=== PATIENT | female | born 1985 | race African-American/Black ===

== ENCOUNTER 2023-01-24 15:04 | Observation (INO) | payer OTHER ==
[2023-01-24 15:17] VITALS: BMI 18.8
[2023-01-24] MEDS ORDERED: KETOROLAC TROMETHAMINE 30 MG/1 ML VIAL IVPUSH ONE (16:02)
[2023-01-24] MEDS ORDERED: DEXAMETHASONE SOD PHOSPHATE 10 MG/1 ML VIAL IVPUSH ONE (16:03)
[2023-01-24] MEDS ORDERED: KETOROLAC TROMETHAMINE 30 MG/1 ML VIAL ONE (16:17)
[2023-01-24] MEDS ORDERED: DEXAMETHASONE SOD PHOSPHATE 10 MG/1 ML VIAL ONE (16:17)
[2023-01-24 16:29] LABS: INR 1.03 (0.83-1.09)
[2023-01-24 16:32] LABS: ACTIVATED PTT 29.5 SECONDS (25.2-36.5)
[2023-01-24 17:00] LABS: CHLORIDE 108 mmol/L (98-107); POTASSIUM 4.5 mmol/L (3.5-5.1); SODIUM 140 mmol/L (136-145)
[2023-01-24 17:02] LABS: ALBUMIN 3.7 g/dl (3.4-5.0); ANION GAP 6 MMOL/L (8-16); BLOOD UREA NITROGEN 5.2 mg/dL (7-18); CALCIUM 9.7 mg/dL (8.5-10.1); CO2 26 mmol/L (21-32); GLUCOSE,RANDOM 100 mg/dL (74-106)
[2023-01-24 17:05] LABS: CREATININE 0.7 mg/dL (0.55-1.3); SGOT/AST 16 U/L (15-37); SGPT/ALT 15 U/L (13-61)
[2023-01-24 17:07] LABS: BILIRUBIN,TOTAL 0.2 mg/dL (0.2-1); TOT PROT 7.6 g/dl (6.4-8.2)
[2023-01-24 17:08] LABS: ALK PHOS 41 U/L (45-117)
[2023-01-24 17:18] LABS: HEMATOCRIT 23.8 % (32.4-45.2); MCHC 24.9 g/dl (32.0-36.0); MEAN CELL VOLUME 54.8 fl (80-96); MEAN PLT VOLUME 8.7 fl (7.5-11.1); PLATELET COUNT 1013 10^3/uL (134-434); RBC 4.35 M/mm3 (3.60-5.2)
[2023-01-24 17:24] LABS: HEMOGLOBIN 5.9 GM/dL (10.7-15.3); MCH 13.6 pg (25.7-33.7)
[2023-01-24 18:05] LABS: ANISOCYTOSIS 3+; MACROCYTOSIS 0; OVALOCYTE 1+; TARGET CELLS 2+
[2023-01-24] MEDS ORDERED: LIDOCAINE 5% TOPICAL PATCH TP ONE (18:53)
[2023-01-24] MEDS ORDERED: ACETAMINOPHEN 1000 MG/100 ML BAG IVPB ONE (18:53)
[2023-01-24] MEDS ORDERED: LIDOCAINE 5% TOPICAL PATCH ONE (19:43)
[2023-01-24] MEDS ORDERED: ACETAMINOPHEN INJECTION 100 ML IVPB ONE (19:43)
[2023-01-25] MEDS ORDERED: ACETAMINOPHEN 325 MG TABLET (FP) PO ONE (01:56)
[2023-01-25 07:27] LABS: HEMATOCRIT 33.1 % (32.4-45.2); HEMOGLOBIN 9.4 GM/dL (10.7-15.3); MCHC 28.3 g/dl (32.0-36.0); MEAN CELL VOLUME 60.9 fl (80-96); MEAN PLT VOLUME 9.2 fl (7.5-11.1); PLATELET COUNT 910 10^3/uL (134-434); RBC 5.43 M/mm3 (3.60-5.2); RDW 36.7 % (11.6-15.6); WHITE BLOOD COUNT 15.8 K/mm3 (4.0-10.0)
[2023-01-25 07:30] LABS: MCH 17.2 pg (25.7-33.7)
[2023-01-25 07:48] LABS: POTASSIUM 4.8 mmol/L (3.5-5.1)
[2023-01-25 07:53] LABS: CALCIUM 10.4 mg/dL (8.5-10.1)
[2023-01-25 07:54] LABS: BLOOD UREA NITROGEN 7.7 mg/dL (7-18)
[2023-01-25 07:57] LABS: CREATININE 0.8 mg/dL (0.55-1.3)
[2023-01-25 08:02] LABS: IRON SERUM 195 ug/dL (50-175); TOTAL IRON BINDING CAPACITY 534 ug/dL (250-450)
[2023-01-25 15:29] VITALS: RESP 18
[2023-01-26 14:43] LABS: HIV INTERPRETATION NEGATIVE (NEGATIVE)
[2023-01-27] MEDS ORDERED: MELATONIN 5 MG TABLETS PO ONE (01:03)
[2023-01-27 11:11] LABS: POTASSIUM 4.3 mmol/L (3.5-5.1)
[2023-01-27 11:13] LABS: CALCIUM 9.9 mg/dL (8.5-10.1)
[2023-01-27 11:14] LABS: BLOOD UREA NITROGEN 10.9 mg/dL (7-18)
[2023-01-27 11:17] LABS: CREATININE 0.7 mg/dL (0.55-1.3)
[2023-01-27 11:50] LABS: BASO % 0.9 % (0-2.0); EOS % 1.5 % (0-4.5); HEMOGLOBIN 9.1 GM/dL (10.7-15.3); LYMPH % 22.2 % (8-40); MCHC 27.5 g/dl (32.0-36.0); MEAN CELL VOLUME 62.2 fl (80-96); MEAN PLT VOLUME 8.7 fl (7.5-11.1); MONO % 8.9 % (3.8-10.2); NEUT % 66.5 % (42.8-82.8); PLATELET COUNT 722 10^3/uL (134-434); RBC 5.31 M/mm3 (3.60-5.2); RDW 36.4 % (11.6-15.6); WHITE BLOOD COUNT 12.8 K/mm3 (4.0-10.0)
[2023-01-27 11:51] LABS: MCH 17.1 pg (25.7-33.7)
[2023-01-27 17:09] VITALS: BP 127/69; PULSE 76; TEMP 98.5
[2023-01-28 16:08] LABS: EPSTEIN BARR ANTIBODY IgM 48.5 U/mL (0.0-35.9)
[2023-01-29 12:09] LABS: VON WILLEBRAND ANTIGEN 77 % (50-200)
== END 2023-01-27 17:50 | disposition home or self-care (01) ==
LOC: JER 15:04 → JERFT 15:04 → JERBED 18:49 → J5S 01-25 14:04
PROVIDERS: ADMIT Internal Medicine; ATTEND Internal Medicine
PROC: 3E033NZ Introduction of Analgesics, Hypnotics, Sedatives into Peripheral Vein, Percutaneous Approach (ICD-10-PCS; principal; 2023-01-24)
PROC: 3E033GC Introduction of Other Therapeutic Substance into Peripheral Vein, Percutaneous Approach (ICD-10-PCS; 2023-01-24)
PROC: 3E0333Z Introduction of Anti-inflammatory into Peripheral Vein, Percutaneous Approach (ICD-10-PCS; 2023-01-24)
PROC: 30233N1 Transfusion of Nonautologous Red Blood Cells into Peripheral Vein, Percutaneous Approach (ICD-10-PCS; 2023-01-24)
DX: D64.9 Anemia, unspecified (principal); R07.0 Pain in throat; R22.1 Localized swelling, mass and lump, neck; Z29.8 Encounter for other specified prophylactic measures; D75.839 Thrombocytosis, unspecified; K08.89 Other specified disorders of teeth and supporting structures
CPT/HCPCS: 36415; 36430; 36511; 70491-TC; 71045-TC-FY; 76700-TC; 80048; 80053; 82272; 82607; 82746; 83540; 83550; 84466; 84702; 85025; 85027; 85240; 85246; 85247; 85610; 85660; 85730; 86663; 86664; 86665; 86705; 86803; 86850; 86900; 86901; 86922; 87340; 87389; 87517; 87651; 96374; 96375; 99285-25; G0378; J1100; P9038; P9058; Q9967

== ENCOUNTER 2023-02-27 11:44 | Day surgery (SDC) | payer OTHER ==
[2023-02-27] MEDS ORDERED: FERRIC CARBOXYMALTOSE 750 MG in SODIUM CHLORIDE 250 ML IVPB ONE (13:00)
[2023-02-27] MEDS ORDERED: SODIUM CHLORIDE 500 ML IV ONE (13:00)
[2023-02-27 16:25] VITALS: BP 119/79; PULSE 86; RESP 18; TEMP 98.3
== END 2023-02-27 15:40 | disposition home or self-care (01) ==
LOC: JONCNONCHE 11:44 → J7W 11:46 → JONCNONCHE 15:40
PROVIDERS: ATTEND Thoracic Surgery (Cardiothoracic Vascular Surgery)
PROC: 3E033GC Introduction of Other Therapeutic Substance into Peripheral Vein, Percutaneous Approach (ICD-10-PCS; principal; 2023-02-27)
DX: D50.9 Iron deficiency anemia, unspecified (principal)
CPT/HCPCS: 96365; J1439

== ENCOUNTER 2023-03-06 11:54 | Day surgery (SDC) | payer OTHER ==
[2023-03-06] MEDS ORDERED: FERRIC CARBOXYMALTOSE 750 MG in SODIUM CHLORIDE 250 ML IVPB ONE (13:00)
[2023-03-06] MEDS ORDERED: SODIUM CHLORIDE 0.9% 500 ML INFUS.BAG IV ONE (13:15)
[2023-03-06 18:00] VITALS: BP 116/79; PULSE 70; RESP 20; TEMP 98.1
== END 2023-03-06 14:30 | disposition home or self-care (01) ==
LOC: JONCNONCHE 11:54 → J7W 11:54 → JONCNONCHE 14:30
PROVIDERS: ATTEND Thoracic Surgery (Cardiothoracic Vascular Surgery)
PROC: 3E033GC Introduction of Other Therapeutic Substance into Peripheral Vein, Percutaneous Approach (ICD-10-PCS; principal; 2023-03-06)
DX: D50.9 Iron deficiency anemia, unspecified (principal)
CPT/HCPCS: 84703; 96365; J1439

== ENCOUNTER 2024-05-31 20:48 | Observation (INO) | payer OTHER ==
[2024-05-31 20:58] VITALS: BMI 19.0
[2024-05-31] MEDS ORDERED: ACETAMINOPHEN INJECTION 100 ML ONE (21:35)
[2024-05-31] MEDS: ACETAMINOPHEN 1000 MG/100 ML BAG IVPB ONE (22:09)
[2024-05-31 22:26] LABS: PH,URINE 7.5 (5.0-8.0); URINE APPEARANCE CLEAR; URINE BILIRUBIN NEGATIVE (NEGATIVE); URINE COLOR YELLOW; URINE GLUCOSE (UA) NEGATIVE (NEGATIVE); URINE KETONE NEGATIVE (NEGATIVE); URINE LEUK ESTERASE NEGATIVE (NEGATIVE); URINE NITRITE NEGATIVE (NEGATIVE); URINE PROTEIN NEGATIVE (NEGATIVE); URINE UROBILINOGEN 0.2 mg/dL (0.2-1.0)
[2024-05-31 22:28] LABS: POTASSIUM 4.3 mmol/L (3.5-5.1)
[2024-05-31 22:30] LABS: CALCIUM 9.5 mg/dL (8.5-10.1)
[2024-05-31 22:31] LABS: BLOOD UREA NITROGEN 8.2 mg/dL (7-18); MAGNESIUM 2.2 mg/dL (1.8-2.4)
[2024-05-31 22:34] LABS: CREATININE 0.8 mg/dL (0.55-1.3)
[2024-05-31 22:36] LABS: BILIRUBIN,TOTAL 0.3 mg/dL (0.2-1); TOT PROT 7.9 g/dl (6.4-8.2)
[2024-05-31 22:38] LABS: ACTIVATED PTT 30.7 SECONDS (25.2-36.5); INR 1.08 (0.83-1.09); PROTHROMBIN TIME (PATIENT) 12.4 SEC (9.7-13.0)
[2024-05-31 22:55] LABS: BASO % 1.3 % (0-2.0); EOS % 0.8 % (0-4.5); HEMATOCRIT 23.5 % (32.4-45.2); LYMPH % 23.7 % (8-40); MCHC 24.9 g/dl (32.0-36.0); MEAN CELL VOLUME 59.1 fl (80-96); MEAN PLT VOLUME 9.5 fl (7.5-11.1); MONO % 8.6 % (3.8-10.2); NEUT % 65.6 % (42.8-82.8); PLATELET COUNT 838 10^3/uL (134-434); RBC 3.98 M/mm3 (3.60-5.2); RDW 36.2 % (11.6-15.6); WHITE BLOOD COUNT 11.4 K/mm3 (4.0-10.0)
[2024-05-31 22:57] LABS: MCH 14.7 pg (25.7-33.7)
[2024-05-31 22:59] LABS: HEMOGLOBIN 5.8 GM/dL (10.7-15.3)
[2024-05-31 23:45] LABS: ANISOCYTOSIS 3+; MACROCYTOSIS 1+
[2024-05-31 23:47] LABS: OVALOCYTE 1+
[2024-06-01 07:33] LABS: RETICULOCYTES 3.26 % (0.5-1.5)
[2024-06-01] MEDS: CEFTRIAXONE 1 G/50 ML PREMIX 50 ML IVPB SCH (11:56)
[2024-06-01] MEDS: LACTOBACILLUS ACIDOPHILUS 1 TABLET PO SCH (11:56)
[2024-06-01] MEDS: ACETAMINOPHEN 325 MG TABLET (FP) PO PRN (11:56)
[2024-06-01 12:51] LABS: BASO % 1.2 % (0-2.0); EOS % 0.7 % (0-4.5); HEMATOCRIT 35.7 % (32.4-45.2); LYMPH % 15.4 % (8-40); MCHC 28.1 g/dl (32.0-36.0); MEAN CELL VOLUME 67.8 fl (80-96); MEAN PLT VOLUME 9.4 fl (7.5-11.1); NEUT % 74.7 % (42.8-82.8); PLATELET COUNT 859 10^3/uL (134-434); RBC 5.27 M/mm3 (3.60-5.2); RDW 39.7 % (11.6-15.6); WHITE BLOOD COUNT 12.7 K/mm3 (4.0-10.0)
[2024-06-01 12:54] LABS: POTASSIUM 4.6 mmol/L (3.5-5.1)
[2024-06-01] MEDS: AZITHROMYCIN IVPB 500 MG/250 ML BAG IVPB ONE (12:55)
[2024-06-01 12:57] LABS: ALBUMIN 3.8 g/dl (3.4-5.0); BLOOD UREA NITROGEN 5.8 mg/dL (7-18); MAGNESIUM 2.2 mg/dL (1.8-2.4)
[2024-06-01 13:00] LABS: CREATININE 0.8 mg/dL (0.55-1.3); PHOSPHOROUS 3.2 mg/dL (2.5-4.9)
[2024-06-01] MEDS: methylPREDNISolone NA SUCC 40 MG/1 ML VIAL IVPUSH ONE (15:52)
[2024-06-02 09:50] VITALS: BP 104/74; PULSE 76; RESP 20; TEMP 98.6
[2024-06-02 09:55] LABS: HEMATOCRIT 31.4 % (32.4-45.2); HEMOGLOBIN 9.1 GM/dL (10.7-15.3); MCHC 28.8 g/dl (32.0-36.0); MEAN CELL VOLUME 66.6 fl (80-96); MEAN PLT VOLUME 9.5 fl (7.5-11.1); PLATELET COUNT 887 10^3/uL (134-434); RBC 4.72 M/mm3 (3.60-5.2); RDW 38.8 % (11.6-15.6); WHITE BLOOD COUNT 17.1 K/mm3 (4.0-10.0)
[2024-06-02 09:56] LABS: MCH 19.2 pg (25.7-33.7)
[2024-06-02 10:09] LABS: POTASSIUM 4.2 mmol/L (3.5-5.1)
[2024-06-02 10:18] LABS: CALCIUM 10.3 mg/dL (8.5-10.1)
[2024-06-02 10:22] LABS: ALBUMIN 3.4 g/dl (3.4-5.0); BLOOD UREA NITROGEN 4.7 mg/dL (7-18)
[2024-06-02 10:25] LABS: BILIRUBIN,TOTAL 0.5 mg/dL (0.2-1); TOT PROT 6.9 g/dl (6.4-8.2)
[2024-06-02 10:26] LABS: CREATININE 0.7 mg/dL (0.55-1.3)
[2024-06-02 10:49] LABS: ANISOCYTOSIS 3+; MACROCYTOSIS 0
[2024-06-02] MEDS: AZITHROMYCIN 250 MG TABLET PO ONE (11:14)
[2024-06-02] MEDS: AZITHROMYCIN IVPB 500 MG/250 ML BAG IVPB SCH (11:28)
[2024-06-03 08:11] LABS: FOLLICLE STIMULATING HORMONE 5.4 mIU/mL (.); LUTEINIZING HORMONE 6.2 mIU/mL (.)
== END 2024-06-02 12:11 | disposition home or self-care (01) ==
LOC: JER 20:48 → JERBED 06-01 01:17 → UNDOADMOB 06-01 01:17 → OBSVTOIN 06-01 03:01 → INTOOBSV 06-01 03:01 → J8W 06-01 05:05 → JERBED 06-01 05:05 → J8W 06-01 14:34 → JERBED 06-01 14:34
PROVIDERS: ADMIT Internal Medicine; ATTEND Nurse Practitioner Acute Care
PROC: 30233N1 Transfusion of Nonautologous Red Blood Cells into Peripheral Vein, Percutaneous Approach (ICD-10-PCS; principal; 2024-06-01)
PROC: 3E03329 Introduction of Other Anti-infective into Peripheral Vein, Percutaneous Approach (ICD-10-PCS; 2024-06-01)
PROC: 3E033NZ Introduction of Analgesics, Hypnotics, Sedatives into Peripheral Vein, Percutaneous Approach (ICD-10-PCS; 2024-06-01)
PROC: 3E033GC Introduction of Other Therapeutic Substance into Peripheral Vein, Percutaneous Approach (ICD-10-PCS; 2024-06-01)
DX: D56.3 Thalassemia minor (principal); D50.9 Iron deficiency anemia, unspecified; R91.1 Solitary pulmonary nodule; B27.00 Gammaherpesviral mononucleosis without complication; N92.1 Excessive and frequent menstruation with irregular cycle
CPT/HCPCS: 0241U-QW; 36415; 36430; 71046-TC-FY; 71275-TC; 76830-TC; 80053; 81003; 81257; 82607; 82672; 82728; 83001; 83002; 83540; 83550; 83615; 83735; 84100; 84144; 84146; 84436; 84443; 84484; 84703; 85025; 85045; 85379; 85610; 85730; 86480; 86850; 86900; 86901; 86922; 87086; 93005; 93010; 96365; 96367; 96375; 99285-25; G0378; J0131; P9038; P9058; Q9967

== ENCOUNTER 2024-08-30 15:12 | Day surgery (SDC) | payer OTHER ==
[2024-08-30] MEDS: FERRIC CARBOXYMALTOSE 750 MG in SODIUM CHLORIDE 250 ML IVPB ONE (15:49)
[2024-08-30 19:08] VITALS: BP 132/75; PULSE 102; RESP 18; TEMP 98.2
== END 2024-08-30 16:49 | disposition home or self-care (01) ==
LOC: JONCNONCHE 15:12 → J7W 15:13 → JONCNONCHE 16:49
PROVIDERS: ATTEND Internal Medicine Hematology & Oncology
PROC: 3E033GC Introduction of Other Therapeutic Substance into Peripheral Vein, Percutaneous Approach (ICD-10-PCS; principal; 2024-08-30)
DX: D50.9 Iron deficiency anemia, unspecified (principal)
CPT/HCPCS: J1439